=== PATIENT | female | born 1990 | race Caucasian/White ===

== ENCOUNTER 2019-07-28 09:50 | Emergency (ER) | payer OTHER ==
[2019-07-28 09:55] VITALS: BP 130/82
[2019-07-28] MEDS ORDERED: DIPH/PERTUSS(ACELL)/TETANUS VAC/PF 0.5 ML SYR (>=10YO) IM ONE (11:02)
--- NOTE | 2019-07-28 11:07 | ER Document Report ---
ED Hand/Wrist Injury - General Chief Complaint: Hand Swelling Stated Complaint: FINGER SWELLING/RING STUCK Time Seen by Provider: 07/28/19 11:02 Mode of Arrival: Ambulatory Information source: Patient Notes: 28-year-old female presents to ED for cervical ring stuck on her ring finger. Pain was very pain swelling discolored. She states she has been trying since last night to get the ring off and has not been able to get it off. She is tried lubricant and ice to the finger and has not been able to remove the ring. Patient is alert oriented respirations regular and unlabored speaking in full sentences. She did give permission to have the ring cut off. Both rings were cut with cutters and all pieces of the rings were given back to the patient. Patient did get a small cut to the finger during the process. She was treated with her tetanus shot and the finger was cleaned well with soap and water and bacitracin and Band-Aid applied. Was offered Tylenol or Motrin at the time. - HPI Injury to: Ring finger Onset: Yesterday Where: Home, Indoors Timing: Still present - Pain was still present we did remove the ring Quality of pain: Pressure, Throbbing Severity: Moderate Pain Level: 2 Context: Swelling Past Medical History - General Information source: Patient - Social History Smoking Status: Never Smoker Frequency of alcohol use: Social Drug Abuse: None Lives with: Family Family History: Reviewed & Not Pertinent Patient has suicidal ideation: No Patient has homicidal ideation: No - Past Medical History Cardiac Medical History: Reports: None Pulmonary Medical History: Reports: Hx Asthma EENT Medical History: Reports: None Neurological Medical History: Reports: None Endocrine Medical History: Reports: None Renal/ Medical History: Reports: None Malignancy Medical History: Reports: None GI Medical History: Reports: None Musculoskeletal Medical History: Reports None Skin Medical History: Reports None Psychiatric Medical History: Reports: None Traumatic Medical History: Reports: None Infectious Medical History: Reports: None Surgical Hx: Negative Past Surgical History: Reports: None - Immunizations Immunizations up to date: Yes Hx Diphtheria, Pertussis, Tetanus Vaccination: Yes - 07/28/2019 Review of Systems - Review of Systems Constitutional: No symptoms reported EENT: No symptoms reported Cardiovascular: No symptoms reported Respiratory: No symptoms reported Gastrointestinal: No symptoms reported Genitourinary: No symptoms reported Female Genitourinary: No symptoms reported Musculoskeletal: No symptoms reported Skin: Other - Ring stuck on left ring finger ring finger is very swollen discolored. Ring was cut off with clippers and all pieces given back to patient Hematologic/Lymphatic: No symptoms reported Neurological/Psychological: No symptoms reported Physical Exam - Vital signs Vitals: Temp Pulse Resp BP Pulse Ox 98.5 F 85 18 130/82 H 100 07/28/19 09:54 07/28/19 09:54 07/28/19 09:54 07/28/19 09:54 07/28/19 09:54 Interpretation: Normal - General General appearance: Appears well, Alert - HEENT Head: Normocephalic, Atraumatic Eyes: Normal Pupils: PERRL - Respiratory Respiratory status: No respiratory distress Chest status: Nontender Breath sounds: Normal Chest palpation: Normal - Cardiovascular Rhythm: Regular Heart sounds: Normal auscultation Murmur: No - Abdominal Inspection: Normal Distension: No distension Bowel sounds: Normal Tenderness: Nontender Organomegaly: No organomegaly - Back Back: Normal, Nontender - Extremities General upper extremity: Normal ROM, Normal temperature General lower extremity: Normal inspection, Nontender, Normal color, Normal ROM, Normal temperature, Normal weight bearing. No: Bernadette's sign Hand: Tender, No evidence of human bite, No evidence of FB, Swelling, Other - Swollen left ring finger. Silver-colored ring x2 were cut off with clippers. Priors were used to separate the ring in order to get it off of the ring finger - Neurological Neuro grossly intact: Yes Cognition: Normal Orientation: AAOx4 [place] Coma Scale Eye Opening: Spontaneous [place] Coma Scale Verbal: Oriented [place] Coma Scale Motor: Obeys Commands [place] Coma Scale Total: 15 Speech: Normal Motor strength normal: LUE, RUE, LLE, RLE Sensory: Normal - Psychological Associated symptoms: Normal affect, Normal mood - Skin Skin Temperature: Warm Skin Moisture: Dry Skin Color: Normal Course - Re-evaluation Re-evalutation: 07/28/19 11:13 Swollen left ring finger. Silver-colored ring x2 were cut off with clippers. Pliers were used to separate the ring in order to get it off of the ring finger. She did get a small cut/abrasion to her finger in the process. Due to the break in the skin she was treated with tetanus immunization. Patient tolerated procedure well. Patient was offered Tylenol and Motrin and refused both. The finger was cleaned well with soap rinsed with water and then bacitracin and Band-Aid applied. - Vital Signs Vital signs: Temp Pulse Resp BP Pulse Ox 98.5 F 85 18 130/82 H 100 07/28/19 10:41 07/28/19 09:54 07/28/19 09:54 07/28/19 09:54 07/28/19 09:54 Discharge - Discharge Clinical Impression: ring stuck on finger, Swelling of left ring finger Condition: Stable Disposition: HOME, SELF-CARE Additional Instructions: You were seen today for your ring being too tight on your left ring finger. We have cut the both silver-colored rings off of your finger and given you the pieces. Was a small abrasion to your finger during the process. Due to this abrasion we have cleaned the finger applied bacitracin and Band-Aid. We have also given you a tetanus immunization Tetanus Immunization Given You have been given an immunization against tetanus. Please record this in your records. In general, a booster is needed only once every 10 years. The tetanus shot protects against tetanus or "lockjaw," which is a complication of certain wound infections (the tetanus shot cannot protect against the actual infection). The immunization site may become warm and red due to local reaction. If this occurs, apply warm compresses and take aspirin or ibuprofen to reduce inflammation and discomfort. Return for evaluation if the reaction becomes severe. Ibuprofen Ibuprofen is an excellent, safe drug for pain control. In addition, it has potent antiinflammatory effects which are beneficial, especially in the treatment of injuries, arthritis, or tendonitis. It's best to take ibuprofen with food. Persons with ulcer disease or allergy to aspirin should notify their physician of this before taking ibuprofen. Take the medication exactly as prescribed. Don't take additional doses unless instructed to do so by your doctor. If you develop wheezing, shortness of breath, hives, faintness, stomach pain, vomiting, or dark black stools, return for re-evaluation at once. Ice & Elevation Apply ice packs frequently against the painful area. Many different schedules are recommended, such as "20 minutes on, 20 minutes off" or "one hour ice, two hours rest." If you need to work, you may need to go longer between ice treatments. You should plan to have the area ice packed AT LEAST one-fourth of the time. The ice should be applied over the wrap, tape, or splint, or over a layer of cloth -- not directly against the skin. Some ice bags have a built-in cloth and can be put directly on the skin. Your injured part should be elevated as much as possible over the next 48 hours. Try to keep the injury above the level of the heart. Avoid use of the injured area. Elevation and rest will decrease the swelling. FOLLOW-UP CARE: If you have been referred to a physician for follow-up care, call the physicians office for an appointment as you were instructed or within the next two days. If you experience worsening or a significant change in your symptoms, notify the physician immediately or return to the Emergency Department at any time for re-evaluation. Forms: Elevated Blood Pressure
== END 2019-07-28 11:16 | disposition home or self-care (01) ==
LOC: ER 09:50
DX: M79.89 Other specified soft tissue disorders (principal); W49.04XA Ring or other jewelry causing external constriction, initial encounter; Y92.009 Unspecified place in unspecified non-institutional (private) residence as the place of occurrence of the external cause; S61.215A Laceration without foreign body of left ring finger without damage to nail, initial encounter; W45.8XXA Other foreign body or object entering through skin, initial encounter; Y92.239 Unspecified place in hospital as the place of occurrence of the external cause; Z23 Encounter for immunization; J45.909 Unspecified asthma, uncomplicated
CPT/HCPCS: 90471; 90715; 99283